=== PATIENT | female | born 1995 | race Caucasian/White ===

== ENCOUNTER 2021-02-22 00:38 | Inpatient (IN) ==
[2021-02-22 06:17] LABS: ABS Basophils 0.1 10^3/ul (0-0.2); ABS Eosinophils 0.4 10^3/ul (0-0.6); ABS Lymphocytes 3.3 10^3/ul (1.0-4.8); ABS Monocytes 0.7 10^3/ul (0-0.8); ABS Neutrophils 5.6 10^3/ul (1.5-7.7); Eosinophil % 3.7 %; Hematocrit 35 % (35-47); Hemoglobin 11.8 g/dL (12.0-16.0); Lymphocyte % 32.8 %; Mean Corpuscular HGB Conc 34 g/dL (31-36); Mean Corpuscular Hemoglobin 30 pg (27-31); Mean Corpuscular Volume 87 fL (80-97); Mean Platelet Volume 9.3 fL (7.4-10.4); Nucleated Red Blood Cells % 0.1; Platelet Count 292 10^3/uL (150-450); Red Blood Count 4.02 10^6 /uL (3.70-4.87); Red Cell Distribution Width 13 % (10-15); White Blood Count 10.2 10^3/uL (3.5-10.8)
[2021-02-22 06:19] LABS: Rapid COVID-19 Molecular Undetected (Undetected)
[2021-02-22 06:36] LABS: ALT 17 U/L (7-52); Acetaminophen < 15 mcg/mL; Albumin 3.8 g/dL (3.2-5.2); Albumin/Globulin Ratio 1.3 (1-3); Alcohol, S < 13 mg/dL (<13); Alkaline Phosphatase 98 U/L (35-149); Blood Urea Nitrogen 16 mg/dL (6-24); CO2 Carbon Dioxide 22 mmol/L (22-32); Chloride 107 mmol/L (101-111); EGFR African American 116.7 (>60); EGFR Non-African American 96.5 (>60); Glucose 108 mg/dL (70-100); Salicylate < 2.50 mg/dL (<30); Sodium 136 mmol/L (135-145); Total Protein 6.8 g/dL (6.4-8.9)
[2021-02-22 06:39] LABS: AST 17 U/L (13-39); Anion Gap 7 mmol/L (2-11); Potassium 3.5 mmol/L (3.5-5.0)
[2021-02-22] MEDS ORDERED: Al Hydrox/Mg Hydrox/Simet LIQ 30 ML UDC PO PRN (06:39)
[2021-02-22 06:43] LABS: HCG Pregnancy < 0.60 mIU/mL
[2021-02-22 06:52] LABS: TSH Ultra Thyroid Stim Horm 2.72 mcIU/mL (0.34-5.60)
[2021-02-22] MEDS ORDERED: chlorproMAZINE TAB 50 MG Q6H PRN AGITATION PO (07:00)
[2021-02-22] MEDS: Vitamin THERAPEUTIC TAB PO SCH (11:55)
[2021-02-23] MEDS: Vitamin THERAPEUTIC TAB PO SCH (09:09)
[2021-02-23] MEDS: DULoxetine DR 30 mg CAP PO SCH (09:09)
[2021-02-24] MEDS: Vitamin THERAPEUTIC TAB PO SCH (08:57)
[2021-02-24] MEDS: Methylphenidate ER 18 mg TAB PO SCH (08:58)
[2021-02-24] MEDS: DULoxetine DR 30 mg CAP PO SCH (08:59)
[2021-02-25 08:31] VITALS: BP 121/81
[2021-02-25] MEDS: DULoxetine DR 30 mg CAP PO SCH (08:38)
[2021-02-25] MEDS: Methylphenidate ER 18 mg TAB PO SCH (08:39)
[2021-02-25] MEDS: Vitamin THERAPEUTIC TAB PO SCH (08:39)
== END 2021-02-25 10:59 | disposition home or self-care (01) | DRG 885 ==
LOC: ED 00:38 → BSU 04:40
PROVIDERS: ADMIT Psychiatry & Neurology Addiction Psychiatry; ATTEND Psychiatry & Neurology Addiction Psychiatry